=== PATIENT | female | born 1980 | race African-American/Black ===

== ENCOUNTER 2018-10-25 10:17 | Emergency (ER) | payer OTHER, MEDICAID ==
[~2018-10-25] VITALS: Ht 149.9 cm; Wt 52.2 kg
[2018-10-25] MEDS ORDERED: NABUMETONE 750750 M1 PO (11:28)
[2018-10-25] MEDS ORDERED: FLEXERIL PO (11:28)
[2018-10-25 12:02] VITALS: BP 111/69
== END 2018-10-25 12:02 | disposition home or self-care (01) ==
LOC: M.ERS 10:17
DX: S93.402A Sprain of unspecified ligament of left ankle, initial encounter (principal); Z88.8 Allergy status to other drugs, medicaments and biological substances; W01.0XXA Fall on same level from slipping, tripping and stumbling without subsequent striking against object, initial encounter; Y93.89 Activity, other specified; Y92.89 Other specified places as the place of occurrence of the external cause; Y99.8 Other external cause status